=== PATIENT | female | born 2000 | race Two or more races ===

== ENCOUNTER → 2020-09-02 17:42 | Outpatient (CLI) | payer OTHER | END | disposition home or self-care (01) | LOC: PPH VACUNA 17:42 | DX: Z23 Encounter for immunization (principal) ==

== ENCOUNTER 2022-08-23 07:58 | Outpatient (CLI) | payer OTHER | END 2022-08-23 09:05 | disposition home or self-care (01) | LOC: PRENATAL 07:58 | PROVIDERS: ATTEND Obstetrics & Gynecology Maternal & Fetal Medicine | DX: O35.9XX0 Maternal care for (suspected) fetal abnormality and damage, unspecified, not applicable or unspecified (principal); O35.3XX0 Maternal care for (suspected) damage to fetus from viral disease in mother, not applicable or unspecified; O24.319 Unspecified pre-existing diabetes mellitus in pregnancy, unspecified trimester; Z3A.16 16 weeks gestation of pregnancy ==

== ENCOUNTER 2022-09-26 10:51 | Outpatient (CLI) | payer OTHER | END 2022-09-26 12:35 | disposition home or self-care (01) | LOC: PRENATAL 10:51 | PROVIDERS: ATTEND Obstetrics & Gynecology Maternal & Fetal Medicine | DX: O35.9XX0 Maternal care for (suspected) fetal abnormality and damage, unspecified, not applicable or unspecified (principal); O35.3XX0 Maternal care for (suspected) damage to fetus from viral disease in mother, not applicable or unspecified; Z3A.21 21 weeks gestation of pregnancy ==

== ENCOUNTER 2022-11-07 09:13 | Outpatient (CLI) | payer OTHER | END 2022-11-07 10:21 | disposition home or self-care (01) | LOC: PRENATAL 09:13 | PROVIDERS: ATTEND Obstetrics & Gynecology Maternal & Fetal Medicine | DX: O26.849 Uterine size-date discrepancy, unspecified trimester (principal); O24.319 Unspecified pre-existing diabetes mellitus in pregnancy, unspecified trimester; Z3A.27 27 weeks gestation of pregnancy ==

== ENCOUNTER 2022-12-05 08:27 | Outpatient (CLI) | payer OTHER | END 2022-12-05 09:43 | disposition home or self-care (01) | LOC: PRENATAL 08:27 | PROVIDERS: ATTEND Obstetrics & Gynecology Maternal & Fetal Medicine | DX: O26.849 Uterine size-date discrepancy, unspecified trimester (principal); O36.1990 Maternal care for other isoimmunization, unspecified trimester, not applicable or unspecified; O24.319 Unspecified pre-existing diabetes mellitus in pregnancy, unspecified trimester; Z3A.31 31 weeks gestation of pregnancy ==

== ENCOUNTER 2023-01-02 08:43 | Outpatient (CLI) | payer OTHER | END 2023-01-02 09:50 | disposition home or self-care (01) | LOC: PRENATAL 08:43 | PROVIDERS: ATTEND Obstetrics & Gynecology Maternal & Fetal Medicine | DX: O26.849 Uterine size-date discrepancy, unspecified trimester (principal); O36.8199 Decreased fetal movements, unspecified trimester, other fetus; Z3A.34 34 weeks gestation of pregnancy ==